=== PATIENT | male | born 1960 | race Hispanic/Latino ===

== ENCOUNTER → 2018-03-16 | Day surgery (SDC) | payer BC ==
[~2018-03-16] MED LIST: ATORVASTATIN CA20 MG PO; EPHEDRINE SULFATE INJ 50 MG/10 ML SYR ONE; FARXIGA; FENTANYL CITRATE/PF 100MCG/2 ML INJ ONE; GLUCAGON FOR INJ 1 MG VIAL ONE; HYOSCYAMINE SULFATE 0.5 MG/ML INJ ONE; LIDOCAINE HCL 2% LOCAL INJ 5 ML SDV VIAL INJ ONE; LIPITOR40 MG PO; METFORMIN HCL850 MG PO; MIDAZOLAM HCL 2 MG/2 ML VIAL ONE; NIFEDIPINE10 MG PO; PROPOFOL IV EMULSION 10 MG/ML 50 ML VIAL ONE; SIMETHICONE 40 MG/0.6 ML BTL ONE; TRADJENTA5 MG PO
--- NOTE | 2018-03-16 10:52 | Operative Report ---
DATE OF PROCEDURE: March 16, 2018 REFERRING PHYSICIAN: Dr. Mariam Méndez. PROCEDURE PERFORMED: Colonoscopy and polypectomy. INDICATIONS FOR COLONOSCOPY: Colorectal cancer screening. MEDICATION: Patient was done under MAC. Please see anesthesiologist's note. PROCEDURE: With the patient in left lateral decubitus position, a flexible fiberoptic Olympus colonoscope was inserted into the rectum and advanced all the way with some difficulty to the cecum. There was some [id number] amount of retained solid debris in the cecum. An approximately 1.5 cm sessile polyp was noted in the cecum and that was removed per piecemeal electrocautery and polypectomy site was hemoclipped. The scope was then withdrawn slowly. Whatever was visualized and mucosa overlying the ascending colon grossly appeared to be within normal limits. The hepatic flexure which was traversed with difficulty to begin with on the way out was suboptimally visualized as the scope snapped back into the transverse colon raising the suspicion that this part of the transverse colon is trapped in an internal hernia. The rest of the transverse colon grossly appeared to be within normal limits. One polyp was hot biopsied from the descending colon. One polyp was hot biopsied from the sigmoid colon. The rectum appeared to be within normal limits. The scope was then retroflexed into the distal rectum and moderate-sized internal hemorrhoids were noted, none of which was actively bleeding. The scope was then straightened out and was subsequently withdrawn. Patient tolerated the procedure well. IMPRESSION 1. Large amount of retained debris in cecal pouch. 2. Approximately 1.5 cm sessile polyp in cecum, removed per piecemeal electrocautery and polypectomy site hemoclipped. 3. Transverse colon ? partially trapped in an internal hernia, hepatic flexure not optimally visualized. 4. Descending colon polyp, hot biopsied. 5. Sigmoid colon polyp, hot biopsied. 6. Internal hemorrhoids, none actively bleeding. PLAN: Follow up histology. Initiate high-fiber, low-fat diet. Initiate high-fiber supplement. Patient will need an air-contrast barium enema. If the barium enema was grossly unremarkable, a followup colonoscopy is indicated in 1 year. Job#: [id number] [facility] cc:MARIAM MALLOY MD
--- OUTSIDE RECORDS SUMMARY | 2018-03-25 14:16 | XMS REPORT | Clinical Summary ---
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 Last Filed Vital Signs Not on file Plan of Treatment Health Maintenance Due Date Last Done Comments MMR VACCINES (1 of 1 - 1963 Standard series) VARICELLA VACCINES (1 of 1975 2 - 2-dose adolescent series) COLON CANCER SCREENING 02/07/2012 SHINGRIX VACCINE (1 of 2) 02/07/2012 INFLUENZA VACCINE 12/05/2017 HEPATITIS B VACCINES Aged Out No longer eligible based on patient's age to complete this topic IPV VACCINES Aged Out No longer eligible based on patient's age to complete this topic MENINGOCOCCAL VACCINE Aged Out No longer eligible based on patient's age to complete this topic Results Not on fileafter 03/24/2017 Advance Directives Patient has advance care planning documents on file. For more information, luis navarro contact: Moi Mckeon [address] [place] [address]
== END | disposition home or self-care (01) ==
LOC: OR 06:33
PROVIDERS: ATTEND Internal Medicine Gastroenterology
DX: Z12.11 Encounter for screening for malignant neoplasm of colon (principal); K63.5 Polyp of colon; K64.8 Other hemorrhoids; K46.0 Unspecified abdominal hernia with obstruction, without gangrene; D12.0 Benign neoplasm of cecum; Z01.810 Encounter for preprocedural cardiovascular examination; Z01.812 Encounter for preprocedural laboratory examination; E11.9 Type 2 diabetes mellitus without complications; Z79.84 Long term (current) use of oral hypoglycemic drugs; I10 Essential (primary) hypertension; E78.00 Pure hypercholesterolemia, unspecified
CPT/HCPCS: 36415; 45384; 82948; 93005; J1610; J1980; J2001; J2250; 45378; 45385

== ENCOUNTER → 2018-05-18 | Day surgery (SDC) | payer OTHER ==
[~2018-05-18] MED LIST changes: -SIMETHICONE 40 MG/0.6 ML BTL ONE
--- OUTSIDE RECORDS SUMMARY | 2018-05-18 06:58 | XMS REPORT | Clinical Summary ---
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 For more information, luis navarro contact: Moi Mckeon [address] [place] [address]
--- NOTE | 2018-05-18 10:13 | Operative Report ---
DATE OF PROCEDURE: May 18, 2018 REFERRING PHYSICIAN: Dr. Mariam Méndez. PROCEDURE PERFORMED: Colonoscopy and polypectomy. 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 Large amount of solid debris was noted in the cecum at that time. Patient is in for followup colonoscopy to remove any residual polypoid tissue. MEDICATION: Patient was done under MAC, please see anesthesiologist's note. PROCEDURE: With the patient in left lateral decubitus position, a flexible fiberoptic Olympus colonoscope was inserted into the rectum with ease and advanced with difficulty all the way to the cecum. The transverse colon ? partially trapped in an internal hernia and was negotiated with difficulty. Residual polypoid tissue was noted and that was removed per hot biopsy forceps and a snare electrocautery. Site was hemoclipped x2. The scope was then withdrawn slowly. Mucosa overlying the ascending colon, transverse colon, and descending colon appeared to be within normal limits. An approximately 5 mm sessile flat polyp was noted at 20 cm from the anal verge in the distal sigmoid colon and it felt a little hard and that was removed per hot biopsy forceps and also, it was tattooed. The rectum appeared to be within normal limits. The scope was then retroflexed into the distal rectum. Moderate-sized internal hemorrhoids were noted, none of which is actively bleeding. The scope was then straightened out and was subsequently withdrawn. Patient tolerated the procedure well. IMPRESSION 1. Residual cecal mass removed per snare electrocautery and hot biopsy forceps, site hemoclipped x2. 2. Transverse colon ? partially trapped in an internal hernia, negotiated with difficulty. 3. Sigmoid colon polyp approximately 5 mm in size, sessile, flat, somewhat firm, removed per hot biopsy forceps and polypectomy site tattooed. 4. Internal hemorrhoids, none actively bleeding. PLAN: Follow up histology. Initiate high-fiber, low-fat diet. Initiate high-fiber supplement. Timing of followup colonoscopy pending pathology report. Job#: [id number] [facility] cc:MARIAM MALLOY MD
== END | disposition home or self-care (01) ==
LOC: OR 06:56
PROVIDERS: ATTEND Internal Medicine Gastroenterology
DX: D12.0 Benign neoplasm of cecum (principal); D12.5 Benign neoplasm of sigmoid colon; E11.9 Type 2 diabetes mellitus without complications; E78.5 Hyperlipidemia, unspecified; I10 Essential (primary) hypertension; K64.8 Other hemorrhoids; K46.0 Unspecified abdominal hernia with obstruction, without gangrene
CPT/HCPCS: 36415; 45384; 45385; 82948; 93005; J1610; J1980; J2001; J2250; 44391